=== PATIENT | female | born 1990 | race Two or more races ===

== ENCOUNTER 2025-04-10 14:21 | Emergency (ER) | payer OTHER ==
[~2025-04-10] VITALS: Ht 157.5 cm; Wt 116.6 kg
== END 2025-04-10 16:34 | disposition home or self-care (01) ==
LOC: ER 14:53
DX: I10 Essential (primary) hypertension (principal); R03.0 Elevated blood-pressure reading, without diagnosis of hypertension; Z88.6 Allergy status to analgesic agent